=== PATIENT | female | born 2000 | race Caucasian/White ===

== ENCOUNTER 2022-08-03 08:25 | Emergency (ER) | payer OTHER ==
[~2022-08-03] VITALS: Ht 165.1 cm; Wt 106.6 kg
[2022-08-03] MEDS ORDERED: MORPHINE 10 MG/ML 1ML VIAL IM ONE (10:10)
[2022-08-03 10:19] LABS: BASO % 0.4 % (0.0-1.0); EOS % 0.5 % (0.0-3.0); HEMATOCRIT 38.2 % (36.0-47.0); HEMOGLOBIN 12.2 g/dl (12.0-15.5); LYMPH # 1.1 10^3/uL (1.5-5.0); LYMPH % 13.4 % (24.0-44.0); MEAN CORPUSCULAR HEMOGLOBIN 26.3 pg (27.0-33.0); MEAN CORPUSCULAR HGB CONC 31.9 g/dl (32.0-36.5); MEAN CORPUSCULAR VOLUME 82.3 fl (80.0-96.0); MONO # 0.4 10^3/uL (0.0-0.8); MONO % 5.2 % (2.0-8.0); NEUTROPHILS # 6.4 10^3/uL (1.5-8.5); NEUTROPHILS % 79.7 % (36.0-66.0); PLATELET COUNT, AUTOMATED 340 10^3/uL (150-450); RED BLOOD COUNT 4.64 10^6/uL (4.00-5.40)
[2022-08-03] MEDS ORDERED: ONDANSETRON 4MG 2ML VIAL IV ONE (10:20)
[2022-08-03] MEDS ORDERED: MORPHINE 4 MG/ML 1ML VIAL IV ONE ×4 (10:20→15:50)
[2022-08-03] MEDS ORDERED: NS 1,000 ML IV ONE (10:40)
[2022-08-03 10:46] LABS: LIPASE 39 U/L (12-53)
[2022-08-03 10:47] LABS: BILIRUBIN,DIRECT 3.1 MG/DL (<0.4)
[2022-08-03 10:48] LABS: ALBUMIN 3.8 G/DL (3.2-5.2); ALKALINE PHOSPHATASE 432 U/L (46-116); ALT/SGPT 477 U/L (7.0-40); AST/SGOT 246 U/L (<34); BILIRUBIN,TOTAL 4.2 MG/DL (0.3-1.2); BLOOD UREA NITROGEN 6 MG/DL (9-23); CARBON DIOXIDE LEVEL 26 MMOL/L (20-31); CHLORIDE LEVEL 103 MMOL/L (98-107); CREATININE FOR GFR 0.75 MG/DL (0.55-1.30); GLOMERULAR FILTRATION RATE > 60.0 (>60); GLUCOSE, FASTING 103 MG/DL (60-100); POTASSIUM SERUM 3.8 MMOL/L (3.5-5.1); SODIUM LEVEL 138 MMOL/L (136-145); TOTAL PROTEIN 7.6 G/DL (5.7-8.2)
[2022-08-03 11:31] LABS: HCG, SERUM QUALITATIVE NEGATIVE (NEGATIVE)
[2022-08-03] MEDS ORDERED: ISOVUE-370 76% 100ML VIAL As Ordered ONE (11:35)
[2022-08-03] MEDS ORDERED: fentaNYL 100 MCG/2 ML INJECTION IV ONE (14:40)
[2022-08-03] MEDS ORDERED: MORPHINE 4 MG/ML 1ML VIAL IV PRN (16:45)
[2022-08-03] MEDS ORDERED: LR 1,000 ML IV SCH (16:50)
[2022-08-03 17:14] LABS: RSV AMPLIFICATION NEGATIVE (NEGATIVE)
[2022-08-03] MEDS: HYDROMORPHONE HCL 0.5 MG/ 0.5 ML SYRINGE IV PRN ×2 (17:40→19:06)
[2022-08-03 19:18] VITALS: BP 129/76
== END 2022-08-03 19:20 | disposition short-term general hospital (02) ==
LOC: M ED 08:25
DX: K80.20 Calculus of gallbladder without cholecystitis without obstruction (principal); Z90.49 Acquired absence of other specified parts of digestive tract; R74.01 Elevation of levels of liver transaminase levels; R11.2 Nausea with vomiting, unspecified
CPT/HCPCS: 36415; 74177; 74181; 80048; 80076; 83605; 83690; 84703; 85025; 87040; 87631; 96361; 96374; 96375; 96376; 99284; J2405